=== PATIENT | female | born 1935 | race Caucasian/White ===

== ENCOUNTER 2016-06-20 14:32 | Inpatient (IN) | payer MEDICARE ==
[~2016-06-20] VITALS: Ht 157.5 cm; Wt 74.9 kg
[2016-06-20] MEDS ORDERED: BP MEDICATION PO (14:39)
[2016-06-20] MEDS ORDERED: ONDANSETRON HCL 4 MG/2 ML VIAL IVP ONE (15:00)
[2016-06-20] MEDS ORDERED: ASPIRIN 81 MG CHEWABLE TABLET PO ONE (15:00)
[2016-06-20] MEDS ORDERED: NITROGLYCERIN 2% (1 GM=INCH) PACKET TP ONE (15:00)
[2016-06-20 15:24] LABS: BASOPHILS % (AUTO) 0.4 % (0.0-2.0); EOSINOPHILS % (AUTO) 0.2 % (1.0-6.0); HEMOGLOBIN 10.5 g/dL (12.0-16.0); LYMPHOCYTES % (AUTO) 5.8 % (22.0-44.0); MEAN CORPUSCULAR HEMOGLOBIN 29.3 pg (26.0-34.0); MEAN CORPUSCULAR VOLUME 92 fL (80-100); MONOCYTES % (AUTO) 5.6 % (2.0-9.0); NEUTROPHILS # (AUTO) 15.1 K/uL (1.8-7.7); PLATELET COUNT (AUTO) 321 K/uL (150-450); RED BLOOD CELL COUNT(AUTO) 3.59 MIL/uL (4.00-5.20); RED CELL DISTRIBUTION WIDTH 14.2 % (11.5-14.5); WHITE BLOOD COUNT (AUTO) 17.1 K/uL (4.5-11.0)
[2016-06-20] MEDS ORDERED: ACETAMINOPHEN 325 MG TABLET PO PRN (15:30)
[2016-06-20] MEDS ORDERED: MAGNESIUM HYDROXIDE SUSPENSION 30 ML UDCUP PO PRN (15:30)
[2016-06-20] MEDS ORDERED: ALBUTEROL SULFATE 2.5 MG/0.5 ML NEB SOLUTION NEB PRN (15:30)
[2016-06-20] MEDS ORDERED: SODIUM CHLORIDE 0.9% 1,000 ML IV ONE (15:30)
[2016-06-20 15:38] LABS: ANION GAP 7 mmol/L (8-16); CALCIUM, TOTAL 8.1 mg/dL (8.8-10.5); CARBON DIOXIDE 30 mmol/L (22-29); CHLORIDE 101 mmol/L (98-107); CREATININE 0.84 mg/dL (0.60-1.30); GLOMERULAR FILTR. RATE CALC > 60 mL/min (>60); POTASSIUM 3.8 mmol/L (3.5-5.1); SODIUM SERUM 138 mmol/L (136-145); UREA NITROGEN, BLOOD 32 mg/dL (7-18)
[2016-06-20 15:48] LABS: ALANINE AMINOTRANSFERASE 18 U/L (12-78); ALBUMIN 1.9 g/dL (3.4-5.0); ASPARTATE AMINOTRANSFERASE 41 U/L (15-37); BILIRUBIN,TOTAL 0.3 mg/dL (0.1-1.0); CREATINE KINASE, TOTAL 44 U/L (26-192); TOTAL PROTEIN, SERUM 6.7 g/dL (6.4-8.2)
[2016-06-20 15:59] LABS: B-TYPE NATRIURETIC PEPTIDE 2520 pg/mL (0-100)
[2016-06-20] MEDS ORDERED: HEPARIN SODIUM,PORCINE 5,000 UNITS/ML VIAL SQ SCH (16:00)
[2016-06-20 16:04] LABS: RBC MORPHOLOGY COMMENT NORMAL RBC MORPH
[2016-06-20] MEDS ORDERED: HEPARIN SODIUM 25000 UNITS/D5W 250 ML IV PRN (16:15)
[2016-06-20] MEDS ORDERED: AZITHROMYCIN 500 MG/NS 250 ML IV ONE (16:15)
[2016-06-20] MEDS ORDERED: HEPARIN SODIUM,PORCINE 5,000 UNITS/ML VIAL IVP PRN ×2 (16:15)
[2016-06-20] MEDS ORDERED: FUROSEMIDE 40 MG/4 ML VIAL IVP ONE (16:15)
[2016-06-20] MEDS ORDERED: HEPARIN SODIUM,PORCINE 5,000 UNITS/ML VIAL IVP ONE ×2 (16:15)
[2016-06-20] MEDS ORDERED: ATORVASTATIN CALCIUM 40 MG TABLET PO ONE (16:15)
[2016-06-20] MEDS: CefTRIAXone 1 GM/DEXTROSE 50 ML IV SCH (16:37)
[2016-06-20 16:44] LABS: PROTHROMBIN TIME 10.5 SEC (9.4-11.6)
[2016-06-20] MEDS: HEPARIN SODIUM 25000 UNITS/D5W 250 ML IV PRN (17:18)
[2016-06-20 17:54] LABS: APPEARANCE,URINE CLOUDY (CLEAR); GLUCOSE, URINE (UA) NEGATIVE (NEGATIVE); KETONES,URINE NEGATIVE (NEGATIVE); LEUKOCYTE ESTERASE ,URINE TRACE (NEGATIVE); PROTEIN,URINE NEGATIVE (NEGATIVE)
[2016-06-20] MEDS: OxyCODONE HCL/ACETAMINOPHEN 5-325 MG TABLET PO PRN (17:57)
[2016-06-20 17:59] LABS: OCCULT BLOOD,URINE TRACE (NEGATIVE)
[2016-06-20 18:00] LABS: AMORPHOUS SEDIMENT,UR Few /LPF (None Seen); SQUAMOUS EPITHELIAL CELL,UR Moderate /LPF (None Seen)
[2016-06-20 20:27] LABS: CREATINE KINASE, TOTAL 33 U/L (26-192)
[2016-06-20 20:45] VITALS: BP 91/52
[2016-06-20] MEDS: DOCUSATE SODIUM 100 MG CAPSULE PO SCH (21:12)
[2016-06-21] VITALS (15 sets, daily range): BP systolic 106–156; BP diastolic 35–78
[2016-06-21] MEDS: OxyCODONE HCL/ACETAMINOPHEN 5-325 MG TABLET PO PRN ×4 (05:39→20:28)
[2016-06-21 07:32] LABS: ANION GAP 9 mmol/L (8-16); CALCIUM, TOTAL 7.7 mg/dL (8.8-10.5); CARBON DIOXIDE 28 mmol/L (22-29); CHLORIDE 103 mmol/L (98-107); CREATINE KINASE, TOTAL 27 U/L (26-192); CREATININE 0.83 mg/dL (0.60-1.30); GLOMERULAR FILTR. RATE CALC > 60 mL/min (>60); SODIUM SERUM 140 mmol/L (136-145); UREA NITROGEN, BLOOD 24 mg/dL (7-18)
[2016-06-21 07:44] LABS: EOSINOPHILS % (AUTO) 0.1 % (1.0-6.0); HEMATOCRIT 28.9 % (36-46); HEMOGLOBIN 9.3 g/dL (12.0-16.0); LYMPHOCYTES # (AUTO) 0.8 K/uL (1.0-4.8); MEAN CORPUSCULAR HEMOGLOBIN 29.6 pg (26.0-34.0); MEAN CORPUSCULAR HGB CONC 32.2 G/dL (31.0-37.0); MEAN CORPUSCULAR VOLUME 92 fL (80-100); MONOCYTES # (AUTO) 1.5 K/uL (0.1-1.0); MONOCYTES % (AUTO) 8.8 % (2.0-9.0); NEUTROPHILS # (AUTO) 14.2 K/uL (1.8-7.7); PLATELET COUNT (AUTO) 323 K/uL (150-450); RED BLOOD CELL COUNT(AUTO) 3.14 MIL/uL (4.00-5.20); RED CELL DISTRIBUTION WIDTH 14.8 % (11.5-14.5); WHITE BLOOD COUNT (AUTO) 16.5 K/uL (4.5-11.0)
[2016-06-21 07:51] LABS: B-TYPE NATRIURETIC PEPTIDE 1640 pg/mL (0-100)
[2016-06-21 08:03] LABS: NEUTROPHILS % (AUTO) 86.1 % (40.0-70.0)
[2016-06-21] MEDS ORDERED: ASPIRIN 81 MG CHEWABLE TABLET PO SCH (09:00)
[2016-06-21] MEDS: DOCUSATE SODIUM 100 MG CAPSULE PO SCH ×2 (09:00→20:28)
[2016-06-21] MEDS: PANTOPRAZOLE SODIUM 40 MG DR TABLET PO SCH (09:24)
[2016-06-21] MEDS: HEPARIN SODIUM 25000 UNITS/D5W 250 ML IV PRN (12:26)
[2016-06-21] MEDS ORDERED: SODIUM CHLORIDE 0.9% 250 ML IV ONE (14:31)
[2016-06-21] MEDS: CefTRIAXone 1 GM/DEXTROSE 50 ML IV SCH (16:00)
[2016-06-21] MEDS: ATORVASTATIN CALCIUM 40 MG TABLET PO SCH (16:15)
[2016-06-21] MEDS ORDERED: 0.9% SODIUM CHLORIDE 10 ML SYRINGE IVP PRN (23:15)
[2016-06-22] VITALS (22 sets, daily range): BP systolic 100–149; BP diastolic 40–110
[2016-06-22] MEDS: OxyCODONE HCL/ACETAMINOPHEN 5-325 MG TABLET PO PRN ×4 (00:11→21:34)
[2016-06-22] MEDS: MORPHINE SULFATE 2 MG/ML SYRINGE IVP PRN ×4 (01:38→20:03)
[2016-06-22 06:05] LABS: BASOPHILS # (AUTO) 0.01 K/uL (0.00-0.20); EOSINOPHILS % (AUTO) 0.54 % (1.0-6.0); HEMATOCRIT 30.1 % (36-46); HEMOGLOBIN 9.8 g/dL (12.0-16.0); LYMPHOCYTES % (AUTO) 5.4 % (22.0-44.0); MEAN CORPUSCULAR HEMOGLOBIN 30.5 pg (26.0-34.0); MEAN CORPUSCULAR HGB CONC 32.5 G/dL (31.0-37.0); MEAN CORPUSCULAR VOLUME 94 fL (80-100); MONOCYTES # (AUTO) 1.6 K/uL (0.1-1.0); MONOCYTES % (AUTO) 8.6 % (2.0-9.0); NEUTROPHILS # (AUTO) 15.4 K/uL (1.8-7.7); PLATELET COUNT (AUTO) 297 K/uL (150-450); RED CELL DISTRIBUTION WIDTH 15.1 % (11.5-14.5)
[2016-06-22 06:12] LABS: ANION GAP 6 mmol/L (8-16); CALCIUM, TOTAL 7.7 mg/dL (8.8-10.5); CARBON DIOXIDE 30 mmol/L (22-29); CHLORIDE 102 mmol/L (98-107); CREATININE 0.83 mg/dL (0.60-1.30); GLOMERULAR FILTR. RATE CALC > 60 mL/min (>60); POTASSIUM 3.8 mmol/L (3.5-5.1); SODIUM SERUM 138 mmol/L (136-145); UREA NITROGEN, BLOOD 22 mg/dL (7-18)
[2016-06-22] MEDS: HEPARIN SODIUM 25000 UNITS/D5W 250 ML IV PRN (06:34)
[2016-06-22 07:03] LABS: NEUTROPHILS % (AUTO) 85.5 % (40.0-70.0)
[2016-06-22 07:09] LABS: B-TYPE NATRIURETIC PEPTIDE 1680 pg/mL (0-100)
[2016-06-22] MEDS: ASPIRIN 325 MG TABLET PO SCH (08:31)
[2016-06-22] MEDS: DOCUSATE SODIUM 100 MG CAPSULE PO SCH ×2 (08:32→20:03)
[2016-06-22] MEDS: ATORVASTATIN CALCIUM 40 MG TABLET PO SCH (08:32)
[2016-06-22] MEDS: PANTOPRAZOLE SODIUM 40 MG DR TABLET PO SCH (08:32)
[2016-06-22] MEDS ORDERED: HEPARIN SODIUM,PORCINE 1,000 UNITS/ML 10 ML VIAL ONE (13:17)
[2016-06-22] MEDS ORDERED: SODIUM BICARBONATE 50 MEQ/50 ML VIAL ONE (13:18)
[2016-06-22] MEDS ORDERED: LIDOCAINE HCL/PF 1% 30 ML VIAL ONE (13:18)
[2016-06-22] MEDS ORDERED: 0.9% SODIUM CHLORIDE 10 ML SYRINGE IVP ONE (13:18)
[2016-06-22] MEDS ORDERED: HEPARIN SODIUM 1000 UNITS/NS 1,000 ML ONE (13:19)
[2016-06-22] MEDS ORDERED: IOHEXOL 300 MG/ML 150 ML VIAL ONE (13:19)
[2016-06-22] MEDS ORDERED: FentaNYL CITRATE-PF 100 MCG/2 ML VIAL ONE (13:20)
[2016-06-22] MEDS ORDERED: VERAPAMIL HCL 2.5 MG/ML 2 ML VIAL ONE (13:21)
[2016-06-22] MEDS ORDERED: MIDAZOLAM HCL 2 MG/2 ML VIAL ONE (13:21)
[2016-06-22] MEDS ORDERED: NITROGLYCERIN 50 MG/D5% WATER 0 ML ONE (13:21)
[2016-06-22] MEDS ORDERED: SODIUM CHLORIDE 0.9% 500 ML IV ONE (14:29)
[2016-06-22] MEDS ORDERED: LIDOCAINE 1% 30 ML/SOD BICARB 8.4% 4 ML SQ ONE (14:34)
[2016-06-22] MEDS ORDERED: HEPARIN SODIUM 1000 UNITS/NS 1,000 ML IARTER ONE (14:35)
[2016-06-22] MEDS ORDERED: IOHEXOL 300 MG/ML 100 ML VIAL IARTER ONE (14:39)
[2016-06-22] MEDS ORDERED: IOHEXOL 300 MG/ML 150 ML VIAL IARTER ONE (14:39)
[2016-06-22] MEDS ORDERED: IOHEXOL 300 MG/ML 100 ML VIAL ONE (14:49)
[2016-06-22] MEDS: CefTRIAXone 1 GM/DEXTROSE 50 ML IV SCH (16:00)
[2016-06-22] MEDS ORDERED: SODIUM CHLORIDE 0.9% 250 ML IV ONE (19:33)
[2016-06-23] VITALS (9 sets, daily range): BP systolic 99–142; BP diastolic 54–83
[2016-06-23] MEDS: MORPHINE SULFATE 2 MG/ML SYRINGE IVP PRN ×2 (00:56→07:32)
[2016-06-23 06:13] LABS: EOSINOPHILS % (AUTO) 0.6 % (1.0-6.0); HEMATOCRIT 31.4 % (36-46); HEMOGLOBIN 9.9 g/dL (12.0-16.0); LYMPHOCYTES # (AUTO) 0.6 K/uL (1.0-4.8); MEAN CORPUSCULAR HEMOGLOBIN 29.6 pg (26.0-34.0); MEAN CORPUSCULAR HGB CONC 31.5 G/dL (31.0-37.0); MEAN CORPUSCULAR VOLUME 94 fL (80-100); MONOCYTES # (AUTO) 1.6 K/uL (0.1-1.0); MONOCYTES % (AUTO) 7.6 % (2.0-9.0); NEUTROPHILS # (AUTO) 18.9 K/uL (1.8-7.7); PLATELET COUNT (AUTO) 343 K/uL (150-450); RED BLOOD CELL COUNT(AUTO) 3.34 MIL/uL (4.00-5.20); WHITE BLOOD COUNT (AUTO) 21.3 K/uL (4.5-11.0)
[2016-06-23 06:21] LABS: ANION GAP 7 mmol/L (8-16); CALCIUM, TOTAL 8.2 mg/dL (8.8-10.5); CARBON DIOXIDE 31 mmol/L (22-29); CHLORIDE 97 mmol/L (98-107); CREATININE 0.82 mg/dL (0.60-1.30); GLOMERULAR FILTR. RATE CALC > 60 mL/min (>60); SODIUM SERUM 135 mmol/L (136-145); UREA NITROGEN, BLOOD 22 mg/dL (7-18)
[2016-06-23 06:51] LABS: NEUTROPHILS % (AUTO) 88.8 % (40.0-70.0)
[2016-06-23 08:01] LABS: GLUCOSE,POINT OF CARE 105 MG/DL (70-110)
[2016-06-23] MEDS: ASPIRIN 325 MG TABLET PO SCH (08:27)
[2016-06-23] MEDS: PANTOPRAZOLE SODIUM 40 MG DR TABLET PO SCH (08:27)
[2016-06-23] MEDS: DOCUSATE SODIUM 100 MG CAPSULE PO SCH (08:27)
[2016-06-23] MEDS: ATORVASTATIN CALCIUM 40 MG TABLET PO SCH (08:27)
[2016-06-23] MEDS: CefTRIAXone 1 GM/DEXTROSE 50 ML IV SCH (15:50)
== END 2016-06-23 19:01 | disposition short-term general hospital (02) | DRG 280 ==
LOC: EMS 14:34 → 5N 15:57 → ICU 15:57
PROVIDERS: ADMIT Internal Medicine; ATTEND Internal Medicine
PROC: 4A023N7 Measurement of Cardiac Sampling and Pressure, Left Heart, Percutaneous Approach (ICD-10-PCS; principal; 2016-06-22)
PROC: B2151ZZ Fluoroscopy of Left Heart using Low Osmolar Contrast (ICD-10-PCS; 2016-06-22)
PROC: B2111ZZ Fluoroscopy of Multiple Coronary Arteries using Low Osmolar Contrast (ICD-10-PCS; 2016-06-22)
DX: I21.4 Non-ST elevation (NSTEMI) myocardial infarction (principal); J18.9 Pneumonia, unspecified organism; I50.21 Acute systolic (congestive) heart failure; N39.0 Urinary tract infection, site not specified; F03.90 Unspecified dementia, unspecified severity, without behavioral disturbance, psychotic disturbance, mood disturbance, and anxiety; R19.00 Intra-abdominal and pelvic swelling, mass and lump, unspecified site; I11.0 Hypertensive heart disease with heart failure; I25.10 Atherosclerotic heart disease of native coronary artery without angina pectoris; Z79.82 Long term (current) use of aspirin; N28.9 Disorder of kidney and ureter, unspecified; G89.29 Other chronic pain; E66.9 Obesity, unspecified; D63.8 Anemia in other chronic diseases classified elsewhere; Z85.89 Personal history of malignant neoplasm of other organs and systems; Z68.30 Body mass index [BMI] 30.0-30.9, adult; Z79.899 Other long term (current) drug therapy
CPT/HCPCS: 76856; 82962; 83735; 87081; 93005; 93306; 96365; 96375; 99291; J0456; J0696; J1644; J1940; J2250; J2270; J2405; J3010; J3490; J7030; J7050; Q9967